=== PATIENT | male | born 1980 | race Caucasian/White ===

== ENCOUNTER → 2016-11-08 | Outpatient (CLI) | payer BC ==
--- NOTE | 2016-11-08 09:58 | KCIC ---
MRI lumbar spine without contrast Indication: Low back pain radiating into both legs. Multiplanar multi sequence imaging of the lumbar spine was performed without contrast. No prior studies are available for comparison. Curvature and alignment of the lumbar spine is normal. The vertebral body heights are well maintained. The marrow signal intensity is unremarkable. No geographic marrow lesion or acute compression fracture is detected. There is some disc desiccation noted L4-5 and L5-S1 levels compatible with degenerative change. Remaining lumbar discs show normal height and hydration. The conus is unremarkable at the T12-L1 level. L1-2: No central canal or neural foraminal stenosis is identified. L2-3: Unremarkable. L3-4: Unremarkable. L4-5: There is some mild annular bulging indenting the ventral thecal sac but no significant central canal stenosis is seen. The neural foramina are patent. L5-S1: Mild broad-based disc bulging is noted but no resultant central canal or neural foraminal stenosis is detected. The paraspinous tissues are unremarkable. Impression: Mild L4-5 and L5-S1 degenerative disc disease. No significant disc protrusion, central canal or neural foraminal stenosis is identified. Electronically signed by: Addison Hernandez MD (Nov 08, 2016 09:57:21)
== END | disposition home or self-care (01) ==
LOC: KCIC MRI 09:16
PROVIDERS: ATTEND Nurse Practitioner Family
DX: M51.36 Other intervertebral disc degeneration, lumbar region (principal)
CPT/HCPCS: 72148

== ENCOUNTER 2020-10-15 07:35 | Emergency (ER) | payer BC ==
[~2020-10-15] VITALS: Ht 185.4 cm; Wt 93.1 kg
[2020-10-15] MEDS ORDERED: ASPIRIN CHEWABLE 81 MG TABLET. PO ONE (08:00)
--- NOTE | 2020-10-15 08:24 | PHYS DOC ---
Past Medical History Past Medical History: No Pertinent History Past Surgical History: No Surgical History Smoking Status: Never Smoker Alcohol Use: None Adult General Chief Complaint Chief Complaint: FEVER HPI HPI Patient is a 40 year old male denies any significant past medical history now presenting the emergency department for 1 week of flulike illness. Patient states that started with mild amount of sore throat, nasal congestion and fevers that started approximately 1 week ago. Noting worsening sensation of fevers 3 days ago with a fever to 102 F. Was seen by his primary care physician at the time was concerned about pharyngitis and states that he was started on amoxicillin. Patient states that since that time he had a worsening sensation of left anterior chest pain, worsening sensation of chills and worsening sore throat. Denies any nausea, vomiting, shortness of breath, dizziness or lightheadedness. Review of Systems Review of Systems Constitutional: Denies fever or chills [] Eyes: Denies change in visual acuity, redness, or eye pain [] HENT: Denies nasal congestion or sore throat [] Respiratory: Denies cough or shortness of breath [] Cardiovascular: No additional information not addressed in HPI [] GI: Denies abdominal pain, nausea, vomiting, bloody stools or diarrhea [] : Denies dysuria or hematuria [] Musculoskeletal: Denies back pain or joint pain [] Integument: Denies rash or skin lesions [] Neurologic: Denies headache, focal weakness or sensory changes [] Endocrine: Denies polyuria or polydipsia [] All other systems were reviewed and found to be within normal limits, except as documented in this note. Current Medications Current Medications Current Medications Medications (Trade) Dose Ordered Sig/Enoch Start Time Stop Time Status Last Admin Dose Admin Aspirin (Aspirin Chewable) 324 mg 1X ONCE 10/15/20 08:00 10/15/20 08:05 DC 10/15/20 08:24 324 MG Allergies Allergies Allergies Coded Allergies Type Severity Reaction Last Updated Verified Sulfa (Sulfonamide Antibiotics) Allergy Intermediate 10/15/20 Yes Physical Exam Physical Exam Constitutional: Well developed, well nourished, no acute distress, non-toxic appearance. [] HENT: Normocephalic, atraumatic, bilateral external ears normal, oropharynx moist, no oral exudates, nose normal. [] Eyes: PERRLA, EOMI, conjunctiva normal, no discharge. [] Neck: Normal range of motion, no tenderness, supple, no stridor. [] Cardiovascular:Heart rate regular rhythm, no murmur [] Lungs & Thorax: Bilateral breath sounds clear to auscultation [] Abdomen: Bowel sounds normal, soft, no tenderness, no masses, no pulsatile masses. [] Skin: Warm, dry, no erythema, no rash. [] Back: No tenderness, no CVA tenderness. [] Extremities: No tenderness, no cyanosis, no clubbing, ROM intact, no edema. [] Neurologic: Alert and oriented X 3, normal motor function, normal sensory function, no focal deficits noted. [] Psychologic: Affect normal, judgement normal, mood normal. [] Current Patient Data Vital Signs Vital Signs Date Time Temp Pulse Resp B/P (MAP) Pulse Ox O2 Delivery O2 Flow Rate FiO2 10/15/20 08:00 98.2 80 18 138/91 (107) 99 Room Air 98.2 Lab Values Laboratory Tests Test 10/15/20 07:48 10/15/20 08:21 Influenza Type A Antigen Negative (NEGATIVE) Influenza Type B Antigen Negative (NEGATIVE) White Blood Count 6.8 x10^3/uL (4.0-11.0) Red Blood Count 4.86 x10^6/uL (4.30-5.70) Hemoglobin 15.4 g/dL (13.0-17.5) Hematocrit 44.5 % (39.0-53.0) Mean Corpuscular Volume 92 fL (79-100) Mean Corpuscular Hemoglobin 32 pg (25-35) Mean Corpuscular Hemoglobin Concent 35 g/dL (31-37) Red Cell Distribution Width 13.1 % (11.5-14.5) Platelet Count 283 x10^3/uL (140-400) Neutrophils (%) (Auto) 59 % (31-73) Lymphocytes (%) (Auto) 32 % (24-48) Monocytes (%) (Auto) 9 % (0-9) Eosinophils (%) (Auto) 0 % (0-3) Basophils (%) (Auto) 0 % (0-3) Neutrophils # (Auto) 4.0 x10^3/uL (1.8-7.7) Lymphocytes # (Auto) 2.2 x10^3/uL (1.0-4.8) Monocytes # (Auto) 0.6 x10^3/uL (0.0-1.1) Eosinophils # (Auto) 0.0 x10^3/uL (0.0-0.7) Basophils # (Auto) 0.0 x10^3/uL (0.0-0.2) Sodium Level 141 mmol/L (136-145) Potassium Level 3.7 mmol/L (3.5-5.1) Chloride Level 103 mmol/L (98-107) Carbon Dioxide Level 27 mmol/L (21-32) Anion Gap 11 (6-14) Blood Urea Nitrogen 10 mg/dL (8-26) Creatinine 0.8 mg/dL (0.7-1.3) Estimated GFR (Cockcroft-Gault) 108.2 BUN/Creatinine Ratio 13 (6-20) Glucose Level 88 mg/dL (70-99) Calcium Level 9.5 mg/dL (8.5-10.1) Magnesium Level 2.1 mg/dL (1.8-2.4) Total Bilirubin 0.5 mg/dL (0.2-1.0) Aspartate Amino Transferase (AST) 13 U/L (15-37) L Alanine Aminotransferase (ALT) 30 U/L (16-63) Alkaline Phosphatase 103 U/L (46-116) Troponin I Quantitative < 0.017 ng/mL (0.000-0.055) MG-Wya-U-Type Natriuretic Peptide 10 pg/mL (0-124) Total Protein 8.1 g/dL (6.4-8.2) Albumin 4.2 g/dL (3.4-5.0) Albumin/Globulin Ratio 1.1 (1.0-1.7) Lipase 76 U/L (73-393) Laboratory Tests 10/15/20 08:21 Laboratory Tests 10/15/20 08:21 EKG EKG [] Radiology/Procedures Radiology/Procedures [] Course & Med Decision Making Course & Med Decision Making Pertinent Labs and Imaging studies reviewed. (See chart for details) 40m with nonspecific chest pain and symptoms consistent with acute flulike illness. Presents with significant underlying etiology and if this is negative feel that the patient be safely discharged home Dragon Disclaimer Dragon Disclaimer This electronic medical record was generated, in whole or in part, using a voice recognition dictation system. Departure Departure Impression: Primary Impression: Viral syndrome Additional Impression: Chest pain Disposition: 01 DC HOME SELF CARE/HOMELESS Condition: GOOD Referrals: CAROLE CANAS APRN (PCP) Patient Instructions: Viral Syndrome Additional Instructions: EMERGENCY DEPARTMENT GENERAL DISCHARGE INSTRUCTIONS Thank you for coming to [facility] Emergency Department (ED) today and trusting us with you care. We trust that you had a positive experience in our Emergency Department. If you wish to speak to the department management, you may call the Director at [phone]. YOUR FOLLOW UP INSTRUCTIONS ARE FOLLOWS: 1. Do you have a private Doctor? If you do not have a private doctor, please ask for a resource list of physicians or clinics that may be able to assist you with follow up care. 2. The Emergency Physicain has interpreted your x-rays. The X-Ray specialist will also review them. If there is a change in the findings, you will be notified in 48 hours when at all possible. 3. A lab test or culture has been done, your results will be reviewed and you will be notified if you need a change in treatment. ADDITIONAL INSTRUCTIONS AND INFORMATION: 1. Your care today has been supervised by a physician who is specially trained in emergency care. Many problems require more than one evaluation for a complete diagnosis and treatment. We recommend that you schedule your follow up appointment as recommended to ensure complete treatment of you illness or injury. If you are unable to obtain follow up care and continue to have a problem, or if your condition worsens, we recommend that you return to the ED. 2. We are not able to safely determine your condition over the phone nor are we able to give sound medical advice over the phone. For these safety reasons, if you call for medical advice we will ask you to come to the ED for further evaluation. 3. If you have any questions regarding these discharge instructions please call the ED at [phone]. SAFETY INFORMATION: In the interest of safety, wellness, and injury prevention; we encourage you to wear your sealbelt, if you smoke; quite smoking, and we encourage family to use a protective helmet for bicycling and other sporting events that present an increased risk for head injury. IF YOUR SYMPTOMS WORSEN OR NEW SYMPTOMS DEVELOP, OR YOU HAVE CONCERNS ABOUT YOUR CONDITION; OR IF YOUR CONDITION WORSENS WHILE YOU ARE WAITING FOR YOUR FOLLOW UP APPOINTMENT; EITHER CONTACT YOUR PRIMARY CARE DOCTOR, THE PHYSICIAN WHOSE NAME AND NUMBER YOU WERE GIVEN, OR RETURN TO THE ED IMMEDIATELY. Problem Qualifiers MEGAN HERNÁNDEZ MD Oct 15, 2020 08:24
--- NOTE | 2020-10-15 08:26 | RAD ---
Exam performed: One view chest and 2 views soft tissue neck. Indication: Reason: fever, sore throat / Spl. Instructions: / History: Date of Service: 10/15/2020 8:18 AM Comparison: None available. FINDINGS: Single AP upright portable view chest : Cardiomediastinal silhouette is within limits of normal. No acute infiltrates, effusion or pneumotho rax is detected. The bony structures are normal. AP and lateral view of the soft tissues neck: The airway is preserved. There is straightening of the cervical spine likely positional. No preverteb ral soft tissue swelling or foreign body identified. The visualized lung apices are clear. Impression: 1. No acute cardiopulmonary process seen. 2. No acute abnormality seen in the soft tissues of the neck. Electronically signed by: Raina Griggs MD (10/15/2020 8:24 AM) [id number]
--- NOTE | 2020-10-15 08:32 | EKG ---
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
--- NOTE | 2020-10-15 08:32 | EKG ---
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
[2020-10-15 08:44] LABS: BASO % 0 % (0-3); EOS % 0 % (0-3); HEMATOCRIT 44.5 % (39.0-53.0); HEMOGLOBIN 15.4 g/dL (13.0-17.5); LYMPH # 2.2 x10^3/uL (1.0-4.8); LYMPH % 32 % (24-48); MEAN CORPUSCULAR HEMOGLOBIN 32 pg (25-35); MEAN CORPUSCULAR HGB CONC 35 g/dL (31-37); MEAN CORPUSCULAR VOLUME 92 fL (79-100); MONO # 0.6 x10^3/uL (0.0-1.1); MONO % 9 % (0-9); NEUT % 59 % (31-73); PLATELET COUNT 283 x10^3/uL (140-400); RED BLOOD COUNT 4.86 x10^6/uL (4.30-5.70); RED CELL DISTRIBUTION WIDTH 13.1 % (11.5-14.5); WHITE BLOOD COUNT 6.8 x10^3/uL (4.0-11.0)
[2020-10-15 08:50] LABS: CALCIUM 9.5 mg/dL (8.5-10.1); CREATININE 0.8 mg/dL (0.7-1.3); GFR 108.2; POTASSIUM 3.7 mmol/L (3.5-5.1)
[2020-10-15 08:56] LABS: ALBUMIN 4.2 g/dL (3.4-5.0); ALBUMIN/GLOBULIN RATIO 1.1 (1.0-1.7); MAGNESIUM 2.1 mg/dL (1.8-2.4); TOTAL BILIRUBIN 0.5 mg/dL (0.2-1.0); TOTAL PROTEIN 8.1 g/dL (6.4-8.2)
[2020-10-15 08:58] LABS: INFLUENZA A PATIENT NEGATIVE (NEGATIVE); INFLUENZA B PATIENT NEGATIVE (NEGATIVE)
[2020-10-15 09:18] VITALS: BP 128/83
--- NOTE | 2020-10-17 08:42 | NUR ---
IP: Informed pt of negative COVID test. Pt verbalized understanding.
== END 2020-10-15 09:28 | disposition home or self-care (01) ==
LOC: ER 07:35
DX: B34.9 Viral infection, unspecified (principal); Z20.822 Contact with and (suspected) exposure to COVID-19; R07.89 Other chest pain; Z88.2 Allergy status to sulfonamides
CPT/HCPCS: 36415; 70360; 71045; 80053; 83690; 83735; 83880; 84484; 85025; 87804; 93005; 99285; C9803; U0003

== ENCOUNTER → 2021-02-15 | Outpatient (CLI) | payer BC ==
--- NOTE | 2021-02-15 18:39 | KCIC ---
EXAM: XR LUMBAR SPINE 2-3V 02/15/2021 11:24 AM CLINICAL INDICATION: Lower back pain, spondylosis, left lower extremity pain, fell 15 years ago COMPARISON: MR lumbar spine 11/08/2016 TECHNIQUE: 3 views of the lumbar spine FINDINGS: No acute fracture. Alignment is normal. There is mild disc space narrowing at L5-S1. Minim al marginal osteophytes at L2-L3 and L3-L4. No significant facet arthrosis. IMPRESSION: No acute osseous abnormality. Mild degenerative disc disease, greatest at L5-S1. Electronically signed by: Antonia Peterson MD (02/15/2021 6:36 PM) [id number]
== END ==
LOC: KCIC 11:21
PROVIDERS: ATTEND Pain Medicine Interventional Pain Medicine
DX: M51.37 Other intervertebral disc degeneration, lumbosacral region (principal)
CPT/HCPCS: 72100